=== PATIENT | female | born 1985 | race Caucasian/White ===

== ENCOUNTER 2023-01-01 00:54 | Inpatient (IN) | payer BC ==
[2023-01-01 01:15] VITALS: BMI 35.6
[2023-01-01] MEDS ORDERED: Acetaminophen 500 MG TAB PO PRN (02:52)
[2023-01-01] MEDS ORDERED: Promethazine HCl 25 MG/ML VIAL IM PRN (02:52)
[2023-01-01] MEDS ORDERED: hydrALAZINE 20 MG/ML VIAL SLOW IVP PRN (02:52)
[2023-01-01] MEDS ORDERED: Ondansetron PF 4 MG/2 ML Vial IVP PRN (02:52)
[2023-01-01] MEDS ORDERED: Penicillin G Potassium 5 MILL.UNITS VIAL ONE (02:57)
[2023-01-01] MEDS ORDERED: Lactated Ringer's 1,000 ML IV SCH (03:00)
[2023-01-01] MEDS ORDERED: Oxytocin 30 units/NS 500 ML 500 ML IV SCH (03:00)
[2023-01-01] MEDS ORDERED: Penicillin G Potassium 5 MILL.UNITS in Sodium Chloride 0.9% 100 ML IVPB SCH (03:15)
[2023-01-01 03:37] LABS: Hematocrit 32.7 % (34.9-44.5); Hemoglobin 10.6 g/dL (12.0-15.5); Mean Corpuscular HGB CONC 32.4 g/dL (32.0-36.0); Mean Corpuscular Hemoglobin 25.9 pg (27.0-33.0); Mean Corpuscular Volume 79.8 fl (81.6-98.3); Mean Platelet Volume 10.6 fl (7.4-10.4); Platelet Count 209 10x3/uL (150-450); RBC Distribution Width 13.2 % (11.5-14.5); White Blood Cell (WBC) Count 6.5 10x3/uL (3.5-10.5)
[2023-01-01 04:08] LABS: Syphilis Antibody Nonreactive (Nonreactive); Syphilis Antibody Index 0.04 S/CO (<1.00 Non-Reactive)
[2023-01-01 04:09] LABS: HBSAg Index 0.15 S/CO (0-0.99); Hep B Surf Ag - L&D Non-Reactive S/CO (NonReactive)
[2023-01-01 04:23] LABS: HIV (1/2) Antibody/Antigen Non-Reactive (NonReactive); HIV 1/2 INDEX 0.08 S/CO (<1.00)
[2023-01-01] MEDS: Penicillin G 2.5 MILL.units 2.5 MILL.UNITS in Premix 1 BAG IVPB SCH ×2 (08:28→16:20)
[2023-01-01] MEDS ORDERED: Azithromycin 500 MG in Sodium Chloride 0.9% 250 ML 250 ML IVPB SCH (23:45)
[2023-01-01] MEDS ORDERED: CEFAZOLIN 2 GM in Sodium Chloride 0.9% 100 ML IVPB SCH (23:45)
[2023-01-01] MEDS ORDERED: Famotidine/PF 20 mg/2ml Vial SLOW IVP PRN (23:50)
[2023-01-01] MEDS ORDERED: Bicitra 30 ML UDCUP PO PRN (23:50)
[2023-01-01] MEDS ORDERED: CEFAZOLIN 2 GM VIAL ONE (23:52)
[2023-01-01] MEDS ORDERED: Azithromycin 500 MG VIAL ONE (23:53)
[2023-01-02] MEDS ORDERED: Morphine PF 10 MG/10 ML VIAL ONE
[2023-01-02] MEDS ORDERED: Ondansetron PF 4 MG/2 ML Vial ONE (00:17)
[2023-01-02] MEDS ORDERED: Oxytocin 10 UNITS/ML VIAL ONE ×2 (00:17→00:27)
[2023-01-02] MEDS ORDERED: Dexamethasone 4 mg/ml Vial ONE (00:17)
[2023-01-02] MEDS ORDERED: Ondansetron PF 4 MG/2 ML Vial IVP PRN ×2 (00:32)
[2023-01-02] MEDS ORDERED: Morphine 4 MG/ML VIAL SLOW IVP PRN (00:32)
[2023-01-02] MEDS ORDERED: Moisturizing Cream (Eucerin) 113 GM JAR TOP PRN (00:32)
[2023-01-02] MEDS ORDERED: Promethazine HCl 25 MG SUPP PR PRN (00:32)
[2023-01-02] MEDS ORDERED: diphenhydrAMINE 50 MG/ML VIAL IVP PRN (00:32)
[2023-01-02] MEDS ORDERED: Promethazine HCl 25 MG/ML VIAL IM PRN (00:32)
[2023-01-02] MEDS ORDERED: Naloxone HCl 0.4 mg/ml Vial IVP PRN ×2 (00:32)
[2023-01-02] MEDS ORDERED: Meperidine HCl/PF 25 MG/ML VIAL SLOW IVP PRN (00:32)
[2023-01-02] MEDS ORDERED: fentaNYL 50 mcg/mL 1 mL Vial SLOW IVP PRN (00:32)
[2023-01-02] MEDS ORDERED: Ketorolac Tromethamine 30 MG/ML VIAL IVP PRN (00:32)
[2023-01-02] MEDS ORDERED: Naloxone HCl 0.4 mg/ml Vial IV PRN (00:32)
[2023-01-02] MEDS ORDERED: Communication Order-Pharmacy FS SCH (00:45)
[2023-01-02] MEDS ORDERED: Ketorolac Tromethamine 30 MG/ML VIAL IVP SCH (00:45)
[2023-01-02] MEDS ORDERED: Morphine 4 MG/ML VIAL ONE (01:12)
[2023-01-02 01:14] LABS: Analyzer IN Cardio CS NICU; RapidComm Collect By L&D
[2023-01-02 01:15] LABS: Analyzer IN Cardio CS NICU; RapidComm Collect By L&D; pH (Cord, venous) 7.406 (7.250-7.350)
[2023-01-02] MEDS ORDERED: Ketorolac Tromethamine 30 MG/ML VIAL ONE (01:16)
[2023-01-02] MEDS ORDERED: Boostrix 0.5 ML (Tdap) VIAL (>/=7 yrs of age) IM ONE (02:58)
[2023-01-02] MEDS ORDERED: Lanolin Ointment 7 GM TUBE TOP PRN ×2 (02:58→06:42)
[2023-01-02] MEDS ORDERED: hydrALAZINE 20 MG/ML VIAL SLOW IVP PRN ×2 (02:58→06:42)
[2023-01-02 04:02] LABS: Hematocrit 29.9 % (34.9-44.5); Hemoglobin 9.6 g/dL (12.0-15.5); Mean Corpuscular HGB CONC 32.1 g/dL (32.0-36.0); Mean Corpuscular Hemoglobin 25.4 pg (27.0-33.0); Mean Corpuscular Volume 79.1 fl (81.6-98.3); Mean Platelet Volume 10.9 fl (7.4-10.4); Platelet Count 191 10x3/uL (150-450); RBC Distribution Width 13.2 % (11.5-14.5); Red Blood Cell (RBC) Count 3.78 10x6/uL (3.90-5.03); White Blood Cell (WBC) Count 9.9 10x3/uL (3.5-10.5)
[2023-01-02] MEDS ORDERED: Oxytocin 30 units/NS 500 ML 500 ML IV SCH (06:42)
[2023-01-02] MEDS ORDERED: HYDROcodone/Acetaminophen 5/325 mg Tablet PO PRN ×4 (06:42→12:45)
[2023-01-02] MEDS ORDERED: Lactated Ringer's 1,000 ML IV SCH (06:42)
[2023-01-02] MEDS ORDERED: Simethicone Chewable 80 MG TAB PO PRN (06:42)
[2023-01-02 07:14] LABS: Hematocrit 29.1 % (34.9-44.5); Hemoglobin 9.5 g/dL (12.0-15.5)
[2023-01-02] MEDS: Penicillin G 2.5 MILL.units 2.5 MILL.UNITS in Premix 1 BAG IVPB SCH (07:19)
[2023-01-02] MEDS ORDERED: Prenatal Vitamin 1 TAB PO SCH (09:00)
[2023-01-02] MEDS: Prenatal Vitamin 1 TAB PO SCH (13:14)
[2023-01-03] MEDS: Ibuprofen 800 MG TAB PO SCH ×3 (03:17→20:31)
[2023-01-03 05:31] LABS: #Basophils 0.1 10x3/uL (0.0-0.2); #Monocytes 0.4 10x3/uL (0.0-1.1); #Neutrophils 7.3 10x3/uL (1.5-8.4); %Basophils 0.5 % (0.0-2.0); %Eosinophils 0.3 % (0.0-6.0); %Lymphocytes 24.1 % (18.0-47.0); %Monocytes 3.7 % (0.0-10.0); Hemoglobin 8.1 g/dL (12.0-15.5); Mean Corpuscular HGB CONC 32.4 g/dL (32.0-36.0); Mean Corpuscular Hemoglobin 25.6 pg (27.0-33.0); Mean Corpuscular Volume 78.9 fl (81.6-98.3); Mean Platelet Volume 11.2 fl (7.4-10.4); Platelet Count 182 10x3/uL (150-450); RBC Distribution Width 13.4 % (11.5-14.5); Red Blood Cell (RBC) Count 3.17 10x6/uL (3.90-5.03); White Blood Cell (WBC) Count 10.3 10x3/uL (3.5-10.5)
[2023-01-03] MEDS ORDERED: Ferrous Sulfate 325 MG TAB PO SCH (06:15)
[2023-01-03] MEDS: Acetaminophen 325 MG TAB PO PRN ×2 (08:56→14:59)
[2023-01-03] MEDS: Prenatal Vitamin 1 TAB PO SCH (08:56)
[2023-01-03] MEDS ORDERED: Docusate 100 MG CAP PO PRN (15:09)
[2023-01-04] MEDS: Acetaminophen 325 MG TAB PO PRN (00:31)
[2023-01-04 05:34] LABS: Hematocrit 26.5 % (34.9-44.5); Hemoglobin 8.6 g/dL (12.0-15.5); Mean Corpuscular HGB CONC 32.5 g/dL (32.0-36.0); Mean Corpuscular Volume 80.1 fl (81.6-98.3); Mean Platelet Volume 10.3 fl (7.4-10.4); Platelet Count 209 10x3/uL (150-450); RBC Distribution Width 13.6 % (11.5-14.5); Red Blood Cell (RBC) Count 3.31 10x6/uL (3.90-5.03); White Blood Cell (WBC) Count 8.5 10x3/uL (3.5-10.5)
[2023-01-04] MEDS: Ibuprofen 800 MG TAB PO SCH (05:51)
[2023-01-04] MEDS: Prenatal Vitamin 1 TAB PO SCH (08:10)
[2023-01-04 08:22] VITALS: BP 122/79; TEMP 98.4
== END 2023-01-04 11:55 | disposition home or self-care (01) | DRG 786 ==
LOC: CSHLD/OP 00:54 → CSHLD 02:52 → CSHPP 01-02 04:00
PROVIDERS: ADMIT Emergency Medicine; ATTEND Emergency Medicine
PROC: 10D00Z1 Extraction of Products of Conception, Low, Open Approach (ICD-10-PCS; principal; 2023-01-02)
DX: O42.913 Preterm premature rupture of membranes, unspecified as to length of time between rupture and onset of labor, third trimester (principal); O24.02 Pre-existing type 1 diabetes mellitus, in childbirth; O45.93 Premature separation of placenta, unspecified, third trimester; E66.9 Obesity, unspecified; O34.211 Maternal care for low transverse scar from previous cesarean delivery; E03.9 Hypothyroidism, unspecified; O99.284 Endocrine, nutritional and metabolic diseases complicating childbirth; O99.214 Obesity complicating childbirth; D25.9 Leiomyoma of uterus, unspecified; O99.892 Other specified diseases and conditions complicating childbirth; Z3A.35 35 weeks gestation of pregnancy; Z79.4 Long term (current) use of insulin; Z79.82 Long term (current) use of aspirin; Z37.0 Single live birth
CPT/HCPCS: 36415; 36430; 82805; 85025; 85027; 86780; 86850; 86900; 86901; 87340; 87389; J1100; J1885; J2270; J2274; J2405; J2540; J2590